=== PATIENT | female | born 1965 | race Caucasian/White ===

== ENCOUNTER → 2017-02-22 | Outpatient (CLI) | payer MEDICARE, MEDICAID ==
--- NOTE | 2017-02-22 12:14 | RAD ---
Indication pain. No history of recent injury. AP oblique and lateral views of the left knee were obtained. There are degenerative changes. This is manifested primarily as medial joint space compartment narrowing. There is some sclerosis of the medial tibial plateau. An acute bony finding is not seen. There is likely a small joint effusion. IMPRESSION: Degenerative changes involving the knee
== END | disposition home or self-care (01) ==
LOC: DXRADRC 11:57
PROVIDERS: ATTEND Physician Assistant Medical
DX: M25.562 Pain in left knee (principal)
CPT/HCPCS: 73562

== ENCOUNTER → 2017-06-08 | Outpatient (CLI) | payer MEDICARE, MEDICAID ==
--- NOTE | 2017-06-08 11:17 | RAD ---
Right knee, 3 views, 06/08/2017: History: Knee and ankle pain There is considerable narrowing of the medial compartment of the knee joint with subchondral sclerosis and marginal spurring. There is minimal lateral subluxation of the tibia relative to the distal femur. There are also moderate lateral and posterior spurs. There is mild spurring at the patellofemoral articulation. No acute fracture is identified. No significant joint effusion is delineated. IMPRESSION: Moderate degenerative change with dominant involvement of the medial compartment of the knee joint. Right ankle, 3 views, 06/08/2017: No fracture or dislocation is identified. No significant arthritic change is seen. There is mild soft tissue swelling laterally. IMPRESSION: No acute bony abnormality is detected.
== END | disposition home or self-care (01) ==
LOC: DXRADRC 07:50
PROVIDERS: ATTEND Physician Assistant Medical
DX: M25.571 Pain in right ankle and joints of right foot (principal); M25.561 Pain in right knee
CPT/HCPCS: 73562; 73610

== ENCOUNTER → 2019-02-20 | Outpatient (CLI) | payer MEDICARE, MEDICAID ==
--- NOTE | 2019-02-20 09:36 | RAD ---
2 view study of the right foot Clinical indications: Large object fell on top of foot. Redness and pain of foot. FINDINGS: Small plantar and posterior spurs of the calcaneus are seen. No acute fracture or dislocation or lytic process or periosteal reaction is seen. A small bunion is seen. No significant degenerative spurring of the first metatarsal phalangeal joint is seen. There is mild degenerative joint space narrowing of this joint compartment. No radiopaque foreign body is seen. IMPRESSION: No acute osseous abnormality. Electronically signed by: Frandy Kline MD (02/20/2019 9:34 AM) [id number]
== END | disposition home or self-care (01) ==
LOC: RAD 07:39
PROVIDERS: ATTEND Physician Assistant Medical
DX: M77.31 Calcaneal spur, right foot (principal); M21.611 Bunion of right foot
CPT/HCPCS: 73620

== ENCOUNTER → 2020-01-09 | Outpatient (CLI) | payer MEDICARE, OTHER ==
--- NOTE | 2020-01-09 15:47 | RAD ---
5 views of the lumbar spine 01/09/2020 INDICATION: Low back pain. COMPARISON STUDY: MRI lumbar spine July 04, 2014. FINDINGS: There is a very mild levocurvature of the lumbar spine. There are mild compression deformities of the T12 and L1 vertebral bodies these are new since comparison study from 2013 but the radiographic appearance favors a chronic etiology. There is significant loss of disc space at T12-L1 as well as L1-L2. Loss of disc space at L1-L2 has progressed in the interim since MRI exam. There is also progressive loss of disc space at L5-S1 probable posterior projecting disc osteophyte complex. Moderate to severe facet arthrosis is seen at L4-L5 and L5-S1. A component of spinal stenosis may well be present at these levels. No acute soft tissue changes are identified. IMPRESSION: 1.Significant degenerative changes of the lumbar spine, progressed since prior exam. If there is clinical evidence of radicular pain or clinically significant spinal stenosis, MRI may be helpful for further evaluation. 2. Mild compression deformities of the T12 and L1 vertebral bodies, new since 2013, though with radiographic appearance favoring a chronic etiology Electronically signed by: Marcos Marlow MD (01/09/2020 3:44 PM) [id number]
--- NOTE | 2020-01-09 16:01 | RAD ---
PROCEDURE: KNEE BILAT 3V STUDY DATE: 01/09/2020 CLINICAL INDICATION / HISTORY: Degenerative joint disease of the knees. TECHNIQUE: AP, oblique and lateral views of both knees were obtained COMPARISON: Right knee 06/08/2017 FINDINGS: Right knee: Bone density is normal. Right knee shows medial joint space narrowing and tricompartmental osteophytic spurring compatible with degenerative change, most conspicuous in the medial compartment. No joint effusion. No fracture or aggressive osseous lesions. Well corticated ossific density superficial to the tibial tuberosity is incidentally noted. Left knee: Joint space narrowing in the medial compartment is present in the setting of tricompartmental osteophytic spurring. This is most conspicuous in the medial compartment, followed by the lateral femoral compartment and minimally in the lateral compartment. No fracture or aggressive osseous lesions are evident. A small joint effusion is suggested. IMPRESSION: Bilateral knee tricompartmental degenerative changes with no fracture or aggressive osseous lesions shown. Electronically signed by: Reyna Monterroso MD (01/09/2020 3:58 PM) [id number]
== END | disposition home or self-care (01) ==
LOC: DXRAD 11:23
PROVIDERS: ATTEND Physician Assistant Medical
DX: M17.0 Bilateral primary osteoarthritis of knee (principal); M47.817 Spondylosis without myelopathy or radiculopathy, lumbosacral region; M43.8X5 Other specified deforming dorsopathies, thoracolumbar region; M48.07 Spinal stenosis, lumbosacral region
CPT/HCPCS: 72110; 73562

== ENCOUNTER → 2020-06-06 | Outpatient (CLI) | payer MEDICARE, OTHER ==
--- NOTE | 2020-06-06 14:52 | RAD ---
PA chest x-ray and 3 views of the left ribs without comparison for left-sided chest and rib pain after fall. FINDINGS: The lungs are clear. The cardiomediastinum is grossly unremarkable. No rib fractures are identified. No pneumothorax or pleural effusion. IMPRESSION: 1. No acute pulmonary abnormality. 2. No radiographic evidence of rib fracture. Electronically signed by: Azeem Muir MD (06/06/2020 2:49 PM) [id number]
== END | disposition home or self-care (01) ==
LOC: PMG 13:57
DX: R07.81 Pleurodynia (principal)
CPT/HCPCS: 71101

== ENCOUNTER → 2022-01-15 | Outpatient (CLI) | payer MEDICARE, OTHER ==
--- NOTE | 2022-01-15 13:30 | RAD ---
XR EXAM OF ANKLE_RIGHT 3VIEWS DATE: 01/15/2022 11:20 AM INDICATION: RT ANKLE PAIN, NKI COMPARISON: None. FINDINGS: Bones: There is no evidence of acute fracture or dislocation. Small dorsal and plantar calcaneal enth esophytes. Joints: The ankle mortise is congruent. No widening of the distal tibiofibular syndesmosis. Miscellaneous: None. IMPRESSION: Normal osseous structures Electronically signed by: Jesus Anthony MD (01/15/2022 1:27 PM) [id number]
== END ==
LOC: RAD 11:05
PROVIDERS: ATTEND Physician Assistant
DX: M77.31 Calcaneal spur, right foot (principal)
CPT/HCPCS: 73610